=== PATIENT | female | born 1980 | race Caucasian/White ===

== ENCOUNTER 2021-03-08 11:20 | Emergency (ER) | payer OTHER ==
[2021-03-08] MEDS ORDERED: HYDROmorphone 0.5 MG/0.5 ML SYRINGE IVP STA ×2 (11:46→13:24)
[2021-03-08] MEDS ORDERED: SODIUM CHLORIDE 0.9% 500 ML 500 ML IV STA (11:46)
[2021-03-08] MEDS ORDERED: SODIUM CHLORIDE 0.9% 1,000 ML IV STA (11:46)
[2021-03-08] MEDS ORDERED: ONDANSETRON 4 MG/2 ML VIAL IVP STA (11:46)
[2021-03-08] MEDS ORDERED: KETOROLAC 15 MG/ML 1 ML VIAL IVP STA (11:46)
--- NOTE | 2021-03-08 12:04 | ED ---
General Adult HPI - General Source: patient, RN notes reviewed Mode of arrival: ambulatory Limitations: no limitations <Martin Rivera - Last Filed: 03/08/21 12:02> <Jax Ovalle - Last Filed: 03/08/21 15:05> - General Chief complaint: Urogenital Stated complaint: rt sided back pain Time Seen by Provider: 03/08/21 11:26 - History of Present Illness Initial comments: This a 40-year-old female presents emergency Department chief complaint of left flank pain. Patient states that she's been having some frequency with dribbling, right hematuria recently. Patient states pain just started severe. Slight nausea no vomiting no diarrhea no constipation. Patient said prior section and tubal ligation no other abdominal surgeries no history kidney stones. (Martin Rivera) - Related Data Previous Rx's Medication Instructions Recorded Cephalexin [Keflex] 500 mg PO BID 7 Days #14 cap 03/08/21 Allergies Allergy/AdvReac Type Severity Reaction Status Date / Time No Known Allergies Allergy Verified 03/08/21 12:16 Review of Systems ROS Other: All systems not noted in ROS Statement are negative. <Martin Rivera - Last Filed: 03/08/21 12:02> ROS Other: All systems not noted in ROS Statement are negative. <Jax Ovalle - Last Filed: 03/08/21 15:05> ROS Statement: Those systems with pertinent positive or pertinent negative responses have been documented in the HPI. Past Medical History Past Medical History: No Reported History History of Any Multi-Drug Resistant Organisms: None Reported Past Surgical History: Section Additional Past Surgical History / Comment(s): c section x 3 Past Psychological History: Anxiety, Depression Smoking Status: Current every day smoker Past Alcohol Use History: Occasional Past Drug Use History: Marijuana <Martin Rivera - Last Filed: 03/08/21 12:02> General Exam Limitations: no limitations General appearance: alert, in no apparent distress Head exam: Present: atraumatic, normocephalic, normal inspection Eye exam: Present: normal appearance, PERRL, EOMI. Absent: scleral icterus, conjunctival injection, periorbital swelling Respiratory exam: Present: normal lung sounds bilaterally. Absent: respiratory distress, wheezes, rales, rhonchi, stridor Cardiovascular Exam: Present: regular rate, normal rhythm, normal heart sounds. Absent: systolic murmur, diastolic murmur, rubs, gallop, clicks GI/Abdominal exam: Present: soft, tenderness (Moderate left), normal bowel sounds. Absent: distended, guarding, rebound, rigid Back exam: Present: CVA tenderness (L). Absent: CVA tenderness (R) Neurological exam: Present: alert Skin exam: Present: warm, dry, intact, normal color. Absent: rash <Martin Rivera - Last Filed: 03/08/21 12:02> Course Vital Signs 03/08/21 03/08/21 03/08/21 11:21 12:39 14:00 Temperature 97.7 F 98.3 F Pulse Rate 76 60 71 Respiratory 18 16 18 Rate Blood Pressure 134/82 131/95 116/79 O2 Sat by Pulse 99 98 97 Oximetry 03/08/21 15:00 Temperature Pulse Rate 62 Respiratory 18 Rate Blood Pressure O2 Sat by Pulse 98 Oximetry Medical Decision Making - Lab Data Result diagrams: 03/08/21 12:24 03/08/21 12:24 - Radiology Data Radiology results: report reviewed (Left renal pelvis stone 1.6 x 1.3 cm with moderate [place]) <Jax Ovalle - Last Filed: 03/08/21 15:05> - Medical Decision Making Patient reevaluated and resting comfortably in bed. Patient reevaluated and reexamined. I agree with PA findings. This includes diagnostic interpretation and treatment plan. No abdominal or CVA tenderness on exam. Case discussed with Dr. gaming who does request Keflex twice a day for one week and follow-up within the next week or 2. (Jax Ovalle) - Lab Data Lab Results 03/08/21 03/08/21 03/08/21 Range/Units 12:24 12:24 12:24 WBC 9.4 (3.8-10.6) k/uL RBC 4.00 (3.80-5.40) m/uL Hgb 13.4 (11.4-16.0) gm/dL Hct 38.8 (34.0-46.0) % MCV 96.9 (80.0-100.0) fL MCH 33.4 (25.0-35.0) pg MCHC 34.5 (31.0-37.0) g/dL RDW 13.2 (11.5-15.5) % Plt Count 254 (150-450) k/uL MPV 7.4 Neutrophils % 83 % Lymphocytes % 12 % Monocytes % 3 % Eosinophils % 1 % Basophils % 1 % Neutrophils # 7.7 (1.3-7.7) k/uL Lymphocytes # 1.1 (1.0-4.8) k/uL Monocytes # 0.3 (0-1.0) k/uL Eosinophils # 0.1 (0-0.7) k/uL Basophils # 0.1 (0-0.2) k/uL Sodium 140 (137-145) mmol/L Potassium 4.2 (3.5-5.1) mmol/L Chloride 111 H (98-107) mmol/L Carbon Dioxide 22 (22-30) mmol/L Anion Gap 7 mmol/L BUN 15 (7-17) mg/dL Creatinine 0.68 (0.52-1.04) mg/dL Est GFR (CKD-EPI)AfAm >90 (>60 ml/min/1.73 sqM) Est GFR (CKD-EPI)NonAf >90 (>60 ml/min/1.73 sqM) Glucose 109 H (74-99) mg/dL Plasma Lactic Acid Jose 0.8 (0.7-2.0) mmol/L Calcium 9.2 (8.4-10.2) mg/dL Total Bilirubin 0.5 (0.2-1.3) mg/dL AST 25 (14-36) U/L ALT 14 (4-34) U/L Alkaline Phosphatase 72 (38-126) U/L Total Protein 6.6 (6.3-8.2) g/dL Albumin 4.1 (3.5-5.0) g/dL Amylase 46 (30-110) U/L Lipase 63 (23-300) U/L Urine Color Urine Appearance (Clear) Urine pH (5.0-8.0) Ur Specific [place] (1.001-1.035) Urine Protein (Negative) Urine Glucose (UA) (Negative) Urine Ketones (Negative) Urine Blood (Negative) Urine Nitrite (Negative) Urine Bilirubin (Negative) Urine Urobilinogen (<2.0) mg/dL Ur Leukocyte Esterase (Negative) Urine RBC (0-5) /hpf Urine WBC (0-5) /hpf Ur Squamous Epith Cells (0-4) /hpf Urine Mucus (None) /hpf Urine HCG, Qual (Not Detectd) 03/08/21 03/08/21 Range/Units 13:58 13:58 WBC (3.8-10.6) k/uL RBC (3.80-5.40) m/uL Hgb (11.4-16.0) gm/dL Hct (34.0-46.0) % MCV (80.0-100.0) fL MCH (25.0-35.0) pg MCHC (31.0-37.0) g/dL RDW (11.5-15.5) % Plt Count (150-450) k/uL MPV Neutrophils % % Lymphocytes % % Monocytes % % Eosinophils % % Basophils % % Neutrophils # (1.3-7.7) k/uL Lymphocytes # (1.0-4.8) k/uL Monocytes # (0-1.0) k/uL Eosinophils # (0-0.7) k/uL Basophils # (0-0.2) k/uL Sodium (137-145) mmol/L Potassium (3.5-5.1) mmol/L Chloride (98-107) mmol/L Carbon Dioxide (22-30) mmol/L Anion Gap mmol/L BUN (7-17) mg/dL Creatinine (0.52-1.04) mg/dL Est GFR (CKD-EPI)AfAm (>60 ml/min/1.73 sqM) Est GFR (CKD-EPI)NonAf (>60 ml/min/1.73 sqM) Glucose (74-99) mg/dL Plasma Lactic Acid [place] (0.7-2.0) mmol/L Calcium (8.4-10.2) mg/dL Total Bilirubin (0.2-1.3) mg/dL AST (14-36) U/L ALT (4-34) U/L Alkaline Phosphatase (38-126) U/L Total Protein (6.3-8.2) g/dL Albumin (3.5-5.0) g/dL Amylase (30-110) U/L Lipase (23-300) U/L Urine Color Yellow Urine Appearance Clear (Clear) Urine pH 8.0 (5.0-8.0) Ur Specific [place] 1.018 (1.001-1.035) Urine Protein 1+ H (Negative) Urine Glucose (UA) Negative (Negative) Urine Ketones Negative (Negative) Urine Blood Large H (Negative) Urine Nitrite Negative (Negative) Urine Bilirubin Negative (Negative) Urine Urobilinogen <2.0 (<2.0) mg/dL Ur Leukocyte Esterase Moderate H (Negative) Urine RBC >182 H (0-5) /hpf Urine WBC 27 H (0-5) /hpf Ur Squamous Epith Cells 1 (0-4) /hpf Urine Mucus Rare H (None) /hpf Urine HCG, Qual Not Detected (Not Detectd) Disposition <Martin Rivera - Last Filed: 03/08/21 12:02> Is patient prescribed a controlled substance at d/c from ED?: No Time of Disposition: 15:03 <Jax Ovalle - Last Filed: 03/08/21 15:05> Clinical Impression: Kidney stone Disposition: HOME SELF-CARE Condition: Stable Instructions (If sedation given, give patient instructions): Kidney Stones (ED) Additional Instructions: Please do follow-up with Dr. Gaming within one week, number provided. Return for fever, increased pain, vomiting, worsening or change in symptoms or other concerns. Prescription for anabiotic has been sent to your pharmacy. [facility] pharmacy Prescriptions: Cephalexin [Keflex] 500 mg PO BID 7 Days #14 cap Referrals: Christopher Gaming MD [STAFF PHYSICIAN] - 1-2 days
--- NOTE | 2021-03-08 12:11 | CT ---
EXAMINATION TYPE: CT abdomen pelvis wo con DATE OF EXAM: 03/08/2021 COMPARISON: None HISTORY: Flank pain and dysuria. CT DLP: 458.5 mGycm Examination of the solid and hollow viscera is limited given the lack of contrast. FINDINGS: LUNG BASES: No evidence for nodule. No evidence for infiltrate. LIVER/GB: The gallbladder is unremarkable. No space-occupying hepatic lesion. PANCREAS: No pancreatic mass identified. No inflammatory process seen. SPLEEN: No evidence for splenomegaly. No intrasplenic lesions seen. ADRENALS: No adrenal nodules identified. No evidence for thickening. KIDNEYS: Calculus within the left renal pelvis measures 1.6 cm x 1.3 cm. There is moderate left-sided hydronephrosis. BOWEL: Appendix has a normal appearance. No evidence of bowel obstruction. No inflammatory process. Lymph nodes: No evidence for adenopathy greater than 1 cm. Abdominal aorta: Atheromatous changes seen. No evidence for aneurysm. Genital organs: No significant abnormality. Other: No significant abnormality. IMPRESSION: 1. Left sided hydronephrosis moderate in degree secondary to a calculus in the region of the left nirmal al pelvis as noted above. No additional calculi seen.
[2021-03-08 12:38] LABS: Basophils # (A) 0.1 k/uL (0-0.2); Basophils % (A) 1 %; Eosinophils # (A) 0.1 k/uL (0-0.7); Eosinophils % (A) 1 %; HCT 38.8 % (34.0-46.0); HGB 13.4 gm/dL (11.4-16.0); Lymphocytes # (A) 1.1 k/uL (1.0-4.8); Lymphocytes % (A) 12 %; MCH 33.4 pg (25.0-35.0); MCHC 34.5 g/dL (31.0-37.0); MCV 96.9 fL (80.0-100.0); Mean Platelet Volume 7.4; Monocytes # (A) 0.3 k/uL (0-1.0); Monocytes % (A) 3 %; Neutrophils # (A) 7.7 k/uL (1.3-7.7); Neutrophils % (A) 83 %; Platelet Count 254 k/uL (150-450); RDW 13.2 % (11.5-15.5); WBC 9.4 k/uL (3.8-10.6)
[2021-03-08 12:47] LABS: ALT 14 U/L (4-34); AST 25 U/L (14-36); African American GFR (CKD) >90 (>60 ml/min/1.73 sqM); Albumin 4.1 g/dL (3.5-5.0); Alkaline Phosphatase 72 U/L (38-126); Amylase 46 U/L (30-110); Anion Gap 7 mmol/L; Blood Urea Nitrogen 15 mg/dL (7-17); Calcium 9.2 mg/dL (8.4-10.2); Carbon Dioxide 22 mmol/L (22-30); Chloride 111 mmol/L (98-107); Glucose 109 mg/dL (74-99); Lipase 63 U/L (23-300); Non-African American GFR(CKD) >90 (>60 ml/min/1.73 sqM); Potassium 4.2 mmol/L (3.5-5.1); Sodium 140 mmol/L (137-145); Total Bilirubin 0.5 mg/dL (0.2-1.3); Total Protein 6.6 g/dL (6.3-8.2)
[2021-03-08] MEDS ORDERED: SODIUM CHLORIDE 0.9% 500 ML 500 ML IV ONE (13:20)
[2021-03-08 14:48] LABS: Appearance,Urine Clear (Clear); Bilirubin,Urine Negative (Negative); Blood,Urine Large (Negative); Color,Urine Yellow; Glucose,Urine (UA) Negative (Negative); Ketones,Urine Negative (Negative); Leukocyte Esterase,Urine Moderate (Negative); Mucus,Urine Rare /hpf; Nitrite,Urine Negative (Negative); Protein,Urine 1+ (Negative); RBC,Urine >182 /hpf (0-5); Specific Gravity,Urine 1.018 (1.001-1.035); Squamous Epithelial Cell,Urine 1 /hpf (0-4); Urobilinogen,Urine <2.0 mg/dL (<2.0); WBC,Urine 27 /hpf (0-5)
[2021-03-08] MEDS ORDERED: ACET/COD 300 MG/30 MG STARTER PACK 6 TAB BTL PO STA (15:02)
[2021-03-08 15:48] VITALS: BP 124/80; PULSE 66; RESP 20; TEMP 98.4
== END 2021-03-08 16:03 | disposition home or self-care (01) ==
LOC: EC 11:20
DX: N13.2 Hydronephrosis with renal and ureteral calculous obstruction (principal); F17.200 Nicotine dependence, unspecified, uncomplicated; Z98.891 History of uterine scar from previous surgery
CPT/HCPCS: 36415; 80053; 82150; 83605; 83690; 85025; 81001; 81025; 87086; 74176; 99284; 96374; 96376; 96375 ×2; 96361 ×2; J2405; J1885; J1170

== ENCOUNTER 2021-04-04 20:08 | Emergency (ER) | payer OTHER ==
[2021-04-04 20:25] VITALS: BP 144/90; PULSE 75; RESP 18; TEMP 98.6
[2021-04-04] MEDS ORDERED: MORPHINE SULFATE 4 MG/ML SYRINGE IM STA (21:02)
[2021-04-04] MEDS ORDERED: KETOROLAC 15 MG/ML 1 ML VIAL IM STA (21:02)
--- NOTE | 2021-04-04 21:10 | ED ---
General Adult HPI - General Chief complaint: Abdominal Pain Stated complaint: kidney stones Time Seen by Provider: 04/04/21 20:51 Source: patient, RN notes reviewed, old records reviewed Mode of arrival: ambulatory Limitations: no limitations - History of Present Illness Initial comments: 40-year-old female presenting for evaluation of left flank pain. Patient was diagnosed with a large kidney stone approximately one month ago. She had a stent placed by urology and is scheduled for lithotripsy. She's had some increased pain and does not have pain medication at home. She denies vomiting but has had some mild nausea. No fevers. No abdominal pain, pain is isolated to the left flank. - Related Data Previous Rx's Medication Instructions Recorded Cephalexin [Keflex] 500 mg PO BID 7 Days #14 cap 03/08/21 HYDROcodone/APAP 5-325MG [[place] 1 tab PO Q6HR PRN #12 tab 04/04/21 5-325] Ibuprofen [Motrin] 600 mg PO Q8HR PRN #24 tab 04/04/21 Allergies Allergy/AdvReac Type Severity Reaction Status Date / Time No Known Allergies Allergy Verified 03/08/21 12:16 Review of Systems ROS Statement: Those systems with pertinent positive or pertinent negative responses have been documented in the HPI. ROS Other: All systems not noted in ROS Statement are negative. Past Medical History Past Medical History: No Reported History History of Any Multi-Drug Resistant Organisms: None Reported Past Surgical History: Section Additional Past Surgical History / Comment(s): c section x 3 Past Psychological History: Anxiety, Depression Smoking Status: Current every day smoker Past Alcohol Use History: Occasional Past Drug Use History: Marijuana General Exam Limitations: no limitations General appearance: alert, in no apparent distress Head exam: Present: atraumatic, normocephalic Eye exam: Present: normal appearance, PERRL ENT exam: Present: normal exam Neck exam: Present: normal inspection. Absent: tenderness Respiratory exam: Present: normal lung sounds bilaterally. Absent: respiratory distress Cardiovascular Exam: Present: regular rate, normal rhythm GI/Abdominal exam: Present: soft. Absent: distended, tenderness, guarding, rebound Back exam: Present: CVA tenderness (L) Neurological exam: Present: alert, oriented X3, CN II-XII intact. Absent: motor sensory deficit Psychiatric exam: Present: normal affect, normal mood Skin exam: Present: warm, dry, intact. Absent: cyanosis, diaphoretic Course Vital Signs 04/04/21 20:23 Temperature 98.6 F Pulse Rate 75 Respiratory 18 Rate Blood Pressure 144/90 O2 Sat by Pulse 98 Oximetry Medical Decision Making - Medical Decision Making 40-year-old female with known left kidney stone which is seen on imaging obtained about one month ago. She did have a stent placed by urology. I discussed case with Dr. Gaming who is familiar with the patient come agreeable with pain management at this time and close outpatient follow-up. Patient's given strict return parameters. Disposition Clinical Impression: Kidney stone, Renal colic on left side Disposition: HOME SELF-CARE Condition: Good Instructions (If sedation given, give patient instructions): Kidney Stones (ED) Prescriptions: Ibuprofen [Motrin] 600 mg PO Q8HR PRN #24 tab PRN Reason: Pain HYDROcodone/APAP 5-325MG [[place] 5-325] 1 tab PO Q6HR PRN #12 tab PRN Reason: Pain Is patient prescribed a controlled substance at d/c from ED?: No Referrals: None,Stated [Primary Care Provider] - 1-2 days Christopher Gaming MD [STAFF PHYSICIAN] - 1-2 days Time of Disposition: 21:09
== END 2021-04-04 21:29 | disposition home or self-care (01) ==
LOC: EC 20:08
DX: N20.0 Calculus of kidney (principal); F32.9 Major depressive disorder, single episode, unspecified; F41.9 Anxiety disorder, unspecified; F17.200 Nicotine dependence, unspecified, uncomplicated; F12.90 Cannabis use, unspecified, uncomplicated
CPT/HCPCS: 99283; 96372 ×2; J2270; J1885

== ENCOUNTER → 2021-04-12 | Outpatient (CLI) | payer OTHER ==
[2021-04-12 11:40] LABS: Basophils # (A) 0.1 k/uL (0-0.2); Basophils % (A) 1 %; Eosinophils # (A) 0.1 k/uL (0-0.7); Eosinophils % (A) 3 %; HCT 37.8 % (34.0-46.0); Lymphocytes # (A) 1.6 k/uL (1.0-4.8); Lymphocytes % (A) 35 %; MCH 33.3 pg (25.0-35.0); MCHC 34.5 g/dL (31.0-37.0); MCV 96.6 fL (80.0-100.0); Mean Platelet Volume 7.6; Monocytes # (A) 0.3 k/uL (0-1.0); Monocytes % (A) 7 %; Neutrophils # (A) 2.4 k/uL (1.3-7.7); Neutrophils % (A) 53 %; Platelet Count 231 k/uL (150-450); RBC 3.91 m/uL (3.80-5.40); RDW 12.7 % (11.5-15.5); WBC 4.6 k/uL (3.8-10.6)
[2021-04-12 11:54] LABS: African American GFR (CKD) >90 (>60 ml/min/1.73 sqM); Anion Gap 8 mmol/L; Blood Urea Nitrogen 15 mg/dL (7-17); Calcium 9.7 mg/dL (8.4-10.2); Carbon Dioxide 25 mmol/L (22-30); Chloride 107 mmol/L (98-107); Glucose 99 mg/dL (74-99); Non-African American GFR(CKD) >90 (>60 ml/min/1.73 sqM); Potassium 3.9 mmol/L (3.5-5.1); Sodium 140 mmol/L (137-145)
[2021-04-12 11:58] LABS: Appearance,Urine Slightly Cloudy (Clear); Color,Urine Yellow; Specific Gravity,Urine >1.030 (1.001-1.035)
[2021-04-12 11:59] LABS: Bilirubin,Urine Negative (Negative); Blood,Urine Large (Negative); Glucose,Urine (UA) Negative (Negative); Ketones,Urine Negative (Negative); Leukocyte Esterase,Urine Large (Negative); Nitrite,Urine Negative (Negative); Protein,Urine 2+ (Negative); Urobilinogen,Urine <2.0 mg/dL (<2.0)
[2021-04-12 12:03] LABS: Bacteria,Urine Moderate /hpf; Mucus,Urine Moderate /hpf; RBC,Urine >182 /hpf (0-5); Squamous Epithelial Cell,Urine 2 /hpf (0-4); WBC,Urine >182 /hpf (0-5)
== END | disposition home or self-care (01) ==
LOC: LABPAT 10:30
PROVIDERS: ATTEND Urology
DX: Z01.812 Encounter for preprocedural laboratory examination (principal); N20.0 Calculus of kidney
CPT/HCPCS: 36415; 80048; 81001; 85025; 87086

== ENCOUNTER 2021-04-19 07:47 | Day surgery (SDC) | payer OTHER ==
[2021-04-15 17:39] VITALS: BMI 23.6
--- NOTE | 2021-04-15 20:09 | P.HPIHPCON ---
History of Present Illness H&P Date: 04/15/21 Chief Complaint: left ureteral stone This is a 40 yo female with history of 1.6 cm left sided ureteral stone, she is S/P left stent placement. She presents today for definitive stone management. Discussed the option of ESWL vs ureteroscopy with holmium laser. She agreed to proceed with left sided ureteroscopy with holmium laser, discussed the risk of bleeding, infection and injury to ureter. She understood all risks and agreed to proceed with left sided ureteroscopy with holmium laser, stone basketting and stent exchange Consent for Procedure: I have explained the operation/procedure to the patient, including the risks, benefits, side effects, alternative therapies (including not receiving the proposed treatment or service), the likelihood of the patient achieving his/her goals, and potential recuperation problems for the procedure/sedation/analgesia, as well as any blood products, if indicated. I also explained to the patient the risks, benefits and side effects of the alternatives, as well as the risks related to not receiving the proposed procedure, care, treatment, or services. - Constitutional Constitutional: Denies chills, Denies fever - Cardiovascular Cardiovascular: Denies chest pain, Denies shortness of breath - Respiratory Respiratory: Denies cough, Denies 7 - Gastrointestinal Gastrointestinal: Denies abdominal pain, Denies diarrhea, Denies nausea, Denies vomiting - Genitourinary (Female) Genitourinary: Reports flank pain, Reports hematuria Past Medical History Past Medical History: No Reported History Additional Past Medical History / Comment(s): kidney stones, migraines, History of Any Multi-Drug Resistant Organisms: None Reported Past Surgical History: Section, Tubal Ligation Additional Past Surgical History / Comment(s): c section x 3 Past Anesthesia/Blood Transfusion Reactions: No Reported Reaction Smoking Status: Current every day smoker - Past Family History Father Family Medical History: Cancer, Deep Vein Thrombosis (DVT) Medications and Allergies Home Medications Medication Instructions Recorded Confirmed Type Acetaminophen-Codeine 300-30mg 1 tab PO Q6H PRN 04/15/21 04/15/21 History [Tylenol w/codeine #3] Vitamin C/Biotin [Hair, Skin and 1 tab PO DAILY 04/15/21 04/15/21 History Nails] Allergies Allergy/AdvReac Type Severity Reaction Status Date / Time No Known Allergies Allergy Verified 04/15/21 17:31 Surgical - Exam - General no distress, moderate pain - Eyes PERRL, normal ocular movement - ENT normal nares, normal mucosa - Respiratory normal expansion, normal respiratory effort - Abdomen Abdomen: soft, non tender - Psychiatric oriented to time, oriented to person, oriented to place Assessment and Plan Assessment: 40 yo female with hx of 1.6 cm left sided renal pelvis stone - OR for left sided ureteroscopy, with holmium laser, stone basketting and stent placement
[~2021-04-19 07:47] MED LIST: DEXAMETHASONE SOD PHOSPHATE 4 MG/ML 1 ML VIAL IV ONE; HYDROmorphone 0.5 MG/0.5 ML SYRINGE IVP PRN; LACTATED RINGERS 1,000 ML IV SCH; ONDANSETRON 4 MG/2 ML VIAL IVP ONE
--- NOTE | 2021-04-19 08:17 | XR ---
EXAMINATION TYPE: XR KUB DATE OF EXAM: 04/19/2021 Comparison: CT 03/08/2021 Clinical History: 40-year-old female left-sided kidney stones Findings: Left ureteral stent is in place. There is a 1.8 x 0.9 cm oval calculus along the proximal portion of the stent, likely within the left renal pelvis. Bilateral tubal ligation clips. Phlebolith within the right side of the pelvis. Nonobstructive bowel gas pattern. Only mild stool within the left side of the abdomen. Impression: Oval 1.8 x 0.9 cm calculus in the left renal collecting system with a left ureteral stent in place.
[2021-04-19 08:26] VITALS: TEMP 97.7
[2021-04-19] MEDS ORDERED: LACTATED RINGERS 1,000 ML IV ONE ×2 (08:32→11:11)
[2021-04-19] MEDS ORDERED: HYDROmorphone (PF) 1 MG/ML ONE (09:15)
[2021-04-19] MEDS ORDERED: NEOSTIGMINE 1 MG/ML 10 ML VIAL ONE (09:15)
[2021-04-19] MEDS ORDERED: LIDOCAINE 1% INJ 10MG/ML (20 ML MDV) ONE (09:15)
[2021-04-19] MEDS ORDERED: fentaNYL (PF) 50 MCG/ML 2 ML AMP ONE (09:15)
[2021-04-19] MEDS ORDERED: MIDAZOLAM 2 MG/2 ML VIAL ONE (09:15)
[2021-04-19] MEDS ORDERED: ROCURONIUM 10 MG/ML (5 ML VIAL) IV ONE (09:15)
[2021-04-19] MEDS ORDERED: SUCCINYLCHOLINE CHLORIDE 100 MG/5 ML SYR IV ONE (09:15)
[2021-04-19] MEDS ORDERED: PROPOFOL 10 MG/ML 20 ML VIAL IV ONE (09:15)
[2021-04-19] MEDS ORDERED: GLYCOPYRROLATE 0.2 MG/ML 2 ML VIAL ONE (09:15)
--- NOTE | 2021-04-19 10:38 | P.OP ---
Date of Procedure: 04/19/21 Preoperative Diagnosis: Left renal calculi Postoperative Diagnosis: Same Procedure(s) Performed: Cystoscopy, left ureteroscopy, holmium laser lithotripsy, stone basketing and stent exchange Implants: 4.8-[place]izen [place] by 24 cm stent Anesthesia: DILIP Surgeon: Christopher Gaming Estimated Blood Loss (ml): 5 Pathology: other (left renal calculi) Condition: stable Disposition: PACU Indications for Procedure: This is a 40 yo female with history of 1.6 cm left sided renal pelvis stone, she is S/P left stent placement. She presents today for definitive stone management. Discussed the option of ESWL vs ureteroscopy with holmium laser. She agreed to proceed with left sided ureteroscopy with holmium laser, discussed the risk of bleeding, infection and injury to ureter. She understood all risks and agreed to proceed with left sided ureteroscopy with holmium laser, stone basketting and stent exchange Operative Findings: Large stone within the left renal pelvis Description of Procedure: She was brought to the operating room, general anesthesia was induced. She was prepped and draped in sterile fashion and placed in dorsal lithotomy position. Cystoscopy fitted with a 21-Citizen [place] sheath was inserted per urethra, cystoscopy was performed which showed no abnormality within the bladder. The stent was visualized protruding from the left ureter, stent was grasped and removed to the meatus. Next a sensor wire was advanced through the stent and the stent was removed with the wire in place. Next under fluoroscopy a 1214 Citizen [place] access sheath was passed into the proximal ureter. Next a flexible ureteroscope was inserted through the access sheath, renoscopy was performed which showed a large stone within the renal pelvis. Using the holmium laser the stone was fragmented into small fragments, sizable fragments were removed using the stone basket. Repeat renoscopy showed no sizable fragments or injury to the kidney.Pullback ureteroscopy was performed which showed no injury to the ureter or any ureteral fragments. As the ureteroscope was withdrawn and a sensor wire was advanced through. Next ureteral stent was passed over the wire, the proximal curl was visualized on fluoroscopy and distal curl was visualized using the cystoscope. The bladder was emptied at end of the case. Patient tolerated the procedure well was taken to PACU in stable condition
--- NOTE | 2021-04-19 10:54 | FL ---
EXAMINATION TYPE: FL guidance operating room DATE OF EXAM: 04/19/2021 FLUOROSCOPY Fluoroscopy time of 21 seconds was used during urologic intervention for left kidney stone. 3 image/ s document/s the procedure.
[2021-04-19] MEDS ORDERED: KETOROLAC 15 MG/ML 1 ML VIAL IVP ONE (11:07)
[2021-04-19 11:09] VITALS: RESP 16
[2021-04-19 11:44] VITALS: BP 112/73; PULSE 54
== END 2021-04-19 11:57 | disposition home or self-care (01) ==
LOC: OR 07:47
PROVIDERS: ATTEND Urology
DX: N20.0 Calculus of kidney (principal); G43.909 Migraine, unspecified, not intractable, without status migrainosus; Z98.891 History of uterine scar from previous surgery; Z98.51 Tubal ligation status; F17.200 Nicotine dependence, unspecified, uncomplicated; Z86.718 Personal history of other venous thrombosis and embolism
CPT/HCPCS: 81025; 82365; 74018; 52356; C2625; C1894; C1769; J2250; J1100; J2710; J0690; J2405; J2001; J3010; J1170 ×2; J1885; J0330; J2704

== ENCOUNTER 2021-04-24 05:48 | Emergency (ER) | payer OTHER ==
[2021-04-24 05:58] VITALS: TEMP 98
--- NOTE | 2021-04-24 06:21 | ED ---
Abdominal Pain HPI <Jax Ovalle - Last Filed: 04/24/21 09:02> - General Source: patient, family Mode of arrival: wheelchair Limitations: no limitations - History of Present Illness MD Complaint: abdominal pain -: days(s) (-) Location: LLQ, L flank Radiation: LLQ Severity scale (1-10): 8 Quality: cramping, stabbing Consistency: constant Improves With: rest, other (sitting on right side ) Worsens With: movement <Marbella Rowe - Last Filed: 04/24/21 10:24> - General Chief Complaint: Abdominal Pain Stated Complaint: Post Op Pain Time Seen by Provider: 04/24/21 06:07 - History of Present Illness Initial Comments: 40-year-old female presents with left-sided abdominal pain for the last 1-2 days. Patient states she was given lithotripsy earlier this week by Dr. pruitt. Patient also had her stent replaced at that time. Patient states she is having a lot of pain on the left lateral side reading down into the left lower quadrant. Patient states she called on-call urologist Dr. Jacobs and he told her it was just a stent she was feeling. Patient states it feels similar to when she had the kidney stone. Patient states she did not notice if she passed any stones this week. Patient does have decreased urine output states she has more Holter clean". No hematuria. No change of bowel movements. Patient had normal bowel movement this morning. Patient feels nauseated but no vomiting still eating well. Patient has a history of 3 sections. No recorded fevers. (Marbella Rowe) - Related Data Home Medications Medication Instructions Recorded Confirmed Acetaminophen-Codeine 300-30mg 1 tab PO Q6H PRN 04/15/21 04/15/21 [Tylenol w/codeine #3] Vitamin C/Biotin [Hair, Skin and 1 tab PO DAILY 04/15/21 04/15/21 Nails] Previous Rx's Medication Instructions Recorded Cephalexin [Keflex] 500 mg PO Q6HR 1 Days #4 cap 04/19/21 Ketorolac [Toradol] 10 mg PO Q6HR PRN #15 tab 04/19/21 Ciprofloxacin [Cipro Susp] 500 mg PO Q12HR #14 ml 04/24/21 HYDROcodone/APAP 5-325MG [[place] 1 tab PO Q6HR PRN 3 Days #12 tab 04/24/21 5-325] Allergies Allergy/AdvReac Type Severity Reaction Status Date / Time No Known Allergies Allergy Verified 04/24/21 05:55 Review of Systems ROS Other: All systems not noted in ROS Statement are negative. <Jax Ovalle - Last Filed: 04/24/21 09:02> ROS Other: All systems not noted in ROS Statement are negative. Constitutional: Reports: as per HPI. Denies: fever, chills Respiratory: Denies: dyspnea Cardiovascular: Denies: chest pain, palpitations Endocrine: Denies: fatigue Gastrointestinal: Reports: abdominal pain, nausea. Denies: vomiting, diarrhea, constipation Genitourinary: Reports: dysuria, frequency Musculoskeletal: Reports: back pain <Marbella Rowe - Last Filed: 04/24/21 10:24> ROS Statement: Those systems with pertinent positive or pertinent negative responses have been documented in the HPI. Past Medical History Past Medical History: No Reported History Additional Past Medical History / Comment(s): kidney stones History of Any Multi-Drug Resistant Organisms: None Reported Past Surgical History: Section Additional Past Surgical History / Comment(s): lithotripsy/ stent placement Past Psychological History: Anxiety, Depression Smoking Status: Current every day smoker Past Alcohol Use History: Occasional Past Drug Use History: Marijuana <Marbella Rowe - Last Filed: 04/24/21 10:24> General Exam Limitations: no limitations General appearance: alert, in distress (in pain) Respiratory exam: Present: normal lung sounds bilaterally. Absent: respiratory distress, wheezes, rales, rhonchi, stridor Cardiovascular Exam: Present: regular rate, normal rhythm, normal heart sounds. Absent: systolic murmur, diastolic murmur, rubs, gallop, clicks GI/Abdominal exam: Present: soft, tenderness (left side), normal bowel sounds. Absent: distended, guarding, rebound, rigid Back exam: Present: CVA tenderness (L) Neurological exam: Present: alert, oriented X3, CN II-XII intact Psychiatric exam: Present: normal affect, normal mood Skin exam: Present: warm, dry, intact, normal color. Absent: rash <Marbella Rowe - Last Filed: 04/24/21 10:24> Course <Jax Ovalle - Last Filed: 04/24/21 09:02> Vital Signs 04/24/21 04/24/21 05:55 09:44 Temperature 98 F Pulse Rate 70 64 Respiratory 18 16 Rate Blood Pressure 144/92 108/73 O2 Sat by Pulse 98 100 Oximetry - Reevaluation(s) Reevaluation #1: 04/24/21 09:02 Patient reevaluated by myself, Dr. Ovalle. Patient resting comfortably in bed and states discomfort is currently 6/10. Patient does have mild tenderness left flank region. Results and reports reviewed. Case was discussed with Dr. Jacobs including exam and lab and CT reports who states patient likely had stent pain and just needs pain control and follow-up with Dr. clay (Jax Ovalle) Medical Decision Making - Lab Data Result diagrams: 04/24/21 06:35 04/24/21 06:35 <Jax Ovalle - Last Filed: 04/24/21 09:02> - Lab Data Result diagrams: 04/24/21 06:35 04/24/21 06:35 <Marbella Rowe - Last Filed: 04/24/21 10:24> - Medical Decision Making reviewed ct abd which show hydronephrosis, pt still uncomfortable after 1 dose of Dilaudid. Patient was given a second dose along with Toradol no patient's pain is finally around 2 and resting comfortably. Patient feels drowsy. Dr. Ovalle discussed with urology and patient will go home outpatient and follow-up with them on Monday morning. Patient aware if symptoms are not improving or worsening patient to return to the emergency room otherwise patient will be treated with antibiotics and pain medication outpatient. (Marbella Rowe) - Lab Data Lab Results 04/24/21 04/24/21 04/24/21 Range/Units 06:35 06:35 06:39 WBC 7.9 (3.8-10.6) k/uL RBC 3.60 L (3.80-5.40) m/uL Hgb 12.3 (11.4-16.0) gm/dL Hct 34.6 (34.0-46.0) % MCV 96.0 (80.0-100.0) fL MCH 34.3 (25.0-35.0) pg MCHC 35.7 (31.0-37.0) g/dL RDW 12.9 (11.5-15.5) % Plt Count 227 (150-450) k/uL MPV 7.7 Neutrophils % 62 % Lymphocytes % 25 % Monocytes % 7 % Eosinophils % 4 % Basophils % 1 % Neutrophils # 4.9 (1.3-7.7) k/uL Lymphocytes # 2.0 (1.0-4.8) k/uL Monocytes # 0.5 (0-1.0) k/uL Eosinophils # 0.3 (0-0.7) k/uL Basophils # 0.1 (0-0.2) k/uL Sodium 138 (137-145) mmol/L Potassium 3.8 (3.5-5.1) mmol/L Chloride 109 H (98-107) mmol/L Carbon Dioxide 23 (22-30) mmol/L Anion Gap 6 mmol/L BUN 20 H (7-17) mg/dL Creatinine 0.57 (0.52-1.04) mg/dL Est GFR (CKD-EPI)AfAm >90 (>60 ml/min/1.73 sqM) Est GFR (CKD-EPI)NonAf >90 (>60 ml/min/1.73 sqM) Glucose 107 H (74-99) mg/dL Calcium 9.1 (8.4-10.2) mg/dL Total Bilirubin <0.1 L (0.2-1.3) mg/dL AST 28 (14-36) U/L ALT 24 (4-34) U/L Alkaline Phosphatase 73 (38-126) U/L Total Protein 5.7 L (6.3-8.2) g/dL Albumin 3.5 (3.5-5.0) g/dL Urine Color Yellow Urine Appearance Cloudy H (Clear) Urine pH 6.0 (5.0-8.0) Ur Specific [place] 1.020 (1.001-1.035) Urine Protein 2+ H (Negative) Urine Glucose (UA) Negative (Negative) Urine Ketones Negative (Negative) Urine Blood Large H (Negative) Urine Nitrite Negative (Negative) Urine Bilirubin Negative (Negative) Urine Urobilinogen <2.0 (<2.0) mg/dL Ur Leukocyte Esterase Large H (Negative) Urine RBC >182 H (0-5) /hpf Urine WBC 52 H (0-5) /hpf Ur Squamous Epith Cells 1 (0-4) /hpf Urine Bacteria Rare H (None) /hpf Urine Mucus Rare H (None) /hpf Urine HCG, Qual (Not Detectd) 04/24/21 Range/Units 06:40 WBC (3.8-10.6) k/uL RBC (3.80-5.40) m/uL Hgb (11.4-16.0) gm/dL Hct (34.0-46.0) % MCV (80.0-100.0) fL MCH (25.0-35.0) pg MCHC (31.0-37.0) g/dL RDW (11.5-15.5) % Plt Count (150-450) k/uL MPV Neutrophils % % Lymphocytes % % Monocytes % % Eosinophils % % Basophils % % Neutrophils # (1.3-7.7) k/uL Lymphocytes # (1.0-4.8) k/uL Monocytes # (0-1.0) k/uL Eosinophils # (0-0.7) k/uL Basophils # (0-0.2) k/uL Sodium (137-145) mmol/L Potassium (3.5-5.1) mmol/L Chloride (98-107) mmol/L Carbon Dioxide (22-30) mmol/L Anion Gap mmol/L BUN (7-17) mg/dL Creatinine (0.52-1.04) mg/dL Est GFR (CKD-EPI)AfAm (>60 ml/min/1.73 sqM) Est GFR (CKD-EPI)NonAf (>60 ml/min/1.73 sqM) Glucose (74-99) mg/dL Calcium (8.4-10.2) mg/dL Total Bilirubin (0.2-1.3) mg/dL AST (14-36) U/L ALT (4-34) U/L Alkaline Phosphatase (38-126) U/L Total Protein (6.3-8.2) g/dL Albumin (3.5-5.0) g/dL Urine Color Urine Appearance (Clear) Urine pH (5.0-8.0) Ur Specific [place] (1.001-1.035) Urine Protein (Negative) Urine Glucose (UA) (Negative) Urine Ketones (Negative) Urine Blood (Negative) Urine Nitrite (Negative) Urine Bilirubin (Negative) Urine Urobilinogen (<2.0) mg/dL Ur Leukocyte Esterase (Negative) Urine RBC (0-5) /hpf Urine WBC (0-5) /hpf Ur Squamous Epith Cells (0-4) /hpf Urine Bacteria (None) /hpf Urine Mucus (None) /hpf Urine HCG, Qual Not Detected (Not Detectd) Disposition <Jax Ovalle - Last Filed: 04/24/21 09:02> Is patient prescribed a controlled substance at d/c from ED?: Yes When asked, does pt state using other controlled substances?: No If prescribed controlled substance>3 days was MAPS reviewed?: Prescribed <3 Days If opioid is for acute pain is fill amount 7 days or less?: Yes If Rx opioid, was Start Talking consent form obtained?: Yes Time of Disposition: 10:24 <Marbella Rowe - Last Filed: 04/24/21 10:24> Clinical Impression: Kidney calculus, Hydronephrosis concurrent with and due to calculi of kidney and ureter, Renal colic on left side, UTI (urinary tract infection) Disposition: HOME SELF-CARE Condition: Good Instructions (If sedation given, give patient instructions): Abdominal Pain (ED), Kidney Stones (ED), Hydronephrosis (ED), Urinary Tract Infection in Women (ED) Prescriptions: Ciprofloxacin [Cipro Susp] 500 mg PO Q12HR #14 ml HYDROcodone/APAP 5-325MG [[place] 5-325] 1 tab PO Q6HR PRN 3 Days #12 tab PRN Reason: Pain Referrals: None,Stated [Primary Care Provider] - 1-2 days Demetrio Huber MD [STAFF PHYSICIAN] - 1-2 days
[2021-04-24] MEDS ORDERED: HYDROmorphone 0.5 MG/0.5 ML SYRINGE IVP STA ×2 (06:22→08:19)
[2021-04-24] MEDS ORDERED: ONDANSETRON 4 MG/2 ML VIAL IVP STA (06:23)
[2021-04-24] MEDS ORDERED: SODIUM CHLORIDE 0.9% 1,000 ML IV SCH (06:30)
[2021-04-24 07:04] LABS: Basophils # (A) 0.1 k/uL (0-0.2); Basophils % (A) 1 %; Eosinophils # (A) 0.3 k/uL (0-0.7); Eosinophils % (A) 4 %; HCT 34.6 % (34.0-46.0); HGB 12.3 gm/dL (11.4-16.0); Lymphocytes % (A) 25 %; MCH 34.3 pg (25.0-35.0); MCHC 35.7 g/dL (31.0-37.0); Mean Platelet Volume 7.7; Monocytes # (A) 0.5 k/uL (0-1.0); Monocytes % (A) 7 %; Neutrophils # (A) 4.9 k/uL (1.3-7.7); Neutrophils % (A) 62 %; Platelet Count 227 k/uL (150-450); RDW 12.9 % (11.5-15.5); WBC 7.9 k/uL (3.8-10.6)
[2021-04-24 07:13] LABS: ALT 24 U/L (4-34); AST 28 U/L (14-36); African American GFR (CKD) >90 (>60 ml/min/1.73 sqM); Albumin 3.5 g/dL (3.5-5.0); Alkaline Phosphatase 73 U/L (38-126); Anion Gap 6 mmol/L; Blood Urea Nitrogen 20 mg/dL (7-17); Calcium 9.1 mg/dL (8.4-10.2); Carbon Dioxide 23 mmol/L (22-30); Chloride 109 mmol/L (98-107); Glucose 107 mg/dL (74-99); Non-African American GFR(CKD) >90 (>60 ml/min/1.73 sqM); Potassium 3.8 mmol/L (3.5-5.1); Sodium 138 mmol/L (137-145); Total Bilirubin <0.1 mg/dL (0.2-1.3); Total Protein 5.7 g/dL (6.3-8.2)
[2021-04-24 07:49] LABS: Appearance,Urine Cloudy (Clear); Bacteria,Urine Rare /hpf; Bilirubin,Urine Negative (Negative); Blood,Urine Large (Negative); Color,Urine Yellow; Glucose,Urine (UA) Negative (Negative); Ketones,Urine Negative (Negative); Leukocyte Esterase,Urine Large (Negative); Mucus,Urine Rare /hpf; Nitrite,Urine Negative (Negative); Protein,Urine 2+ (Negative); RBC,Urine >182 /hpf (0-5); Squamous Epithelial Cell,Urine 1 /hpf (0-4); Urobilinogen,Urine <2.0 mg/dL (<2.0); WBC,Urine 52 /hpf (0-5)
--- NOTE | 2021-04-24 08:18 | CT ---
EXAMINATION TYPE: CT abdomen pelvis wo con DATE OF EXAM: 04/24/2021 COMPARISON: 03/08/2021 HISTORY: Left sided flank pain, s/p lithotripsy CT DLP: 433.9 mGycm Examination of the solid and hollow viscera is limited given the lack of contrast. FINDINGS: LUNG BASES: No evidence for nodule. No evidence for infiltrate. LIVER/GB: The gallbladder is unremarkable. No space-occupying hepatic lesion. PANCREAS: No pancreatic mass identified. No inflammatory process seen. SPLEEN: No evidence for splenomegaly. No intrasplenic lesions seen. ADRENALS: No adrenal nodules identified. No evidence for thickening. KIDNEYS: Interval lithotripsy changes seen. Progressive hydronephrosis which is moderate to severe at this time. Left ureteral stent is in place. Layering hyperdensity is noted within the pelvicalyceal system left kidney at its mid and lower pole regions. No obstructing ureteral calculus is seen at thi s time. Right kidney is unremarkable. BOWEL: Appendix has a normal appearance. No evidence of bowel obstruction. No inflammatory process. Lymph nodes: No evidence for adenopathy greater than 1 cm. Abdominal aorta: Atheromatous changes seen. No evidence for aneurysm. Genital organs: No significant abnormality. Tubal ligation changes. Other: No significant abnormality. IMPRESSION: 1. Progressive left-sided hydronephrosis despite left ureteral stent. 2. Interval changes of lithotripsy with layering hyperdensity presumed calcifications within the manish coretta of the mid and lower pole of the left kidney.
[2021-04-24] MEDS ORDERED: KETOROLAC 15 MG/ML 1 ML VIAL IVP STA (09:03)
[2021-04-24 09:45] VITALS: BP 108/73; PULSE 64; RESP 16
== END 2021-04-24 10:28 | disposition home or self-care (01) ==
LOC: EC 05:48
DX: N13.6 Pyonephrosis (principal); G89.18 Other acute postprocedural pain; F17.200 Nicotine dependence, unspecified, uncomplicated; Z87.442 Personal history of urinary calculi
CPT/HCPCS: 36415; 80053; 85025; 81001; 81025; 87086; 74176; 99284; 96374; 96375; 96376; 96361; J2405; J1885; J1170

== ENCOUNTER 2021-05-03 01:44 | Emergency (ER) | payer OTHER ==
[2021-05-03] MEDS ORDERED: SODIUM CHLORIDE 0.9% 1,000 ML IV STA (02:16)
[2021-05-03] MEDS ORDERED: ONDANSETRON 4 MG/2 ML VIAL IVP STA (02:16)
[2021-05-03] MEDS ORDERED: HYDROmorphone 1 MG/ML 1 ML SYRINGE IVP STA ×2 (02:16→03:28)
[2021-05-03] MEDS ORDERED: KETOROLAC 15 MG/ML 1 ML VIAL IVP STA (02:16)
[2021-05-03 02:34] LABS: Basophils # (A) 0.1 k/uL (0-0.2); Basophils % (A) 1 %; Eosinophils # (A) 0.2 k/uL (0-0.7); Eosinophils % (A) 3 %; HCT 35.3 % (34.0-46.0); HGB 12.5 gm/dL (11.4-16.0); Lymphocytes # (A) 1.7 k/uL (1.0-4.8); Lymphocytes % (A) 26 %; MCHC 35.5 g/dL (31.0-37.0); MCV 95.8 fL (80.0-100.0); Mean Platelet Volume 7.3; Monocytes # (A) 0.3 k/uL (0-1.0); Monocytes % (A) 5 %; Neutrophils # (A) 4.1 k/uL (1.3-7.7); Neutrophils % (A) 64 %; Platelet Count 319 k/uL (150-450); RBC 3.68 m/uL (3.80-5.40); WBC 6.5 k/uL (3.8-10.6)
[2021-05-03 02:44] LABS: Appearance,Urine Cloudy (Clear); Bacteria,Urine Moderate /hpf; Bilirubin,Urine Negative (Negative); Blood,Urine Large (Negative); Color,Urine Yellow; Glucose,Urine (UA) Negative (Negative); Ketones,Urine Negative (Negative); Leukocyte Esterase,Urine Large (Negative); Mucus,Urine Occasional /hpf; Nitrite,Urine Negative (Negative); Protein,Urine 2+ (Negative); RBC,Urine >182 /hpf (0-5); Specific Gravity,Urine 1.015 (1.001-1.035); Squamous Epithelial Cell,Urine 1 /hpf (0-4); Urobilinogen,Urine <2.0 mg/dL (<2.0); WBC,Urine 117 /hpf (0-5)
[2021-05-03 02:46] LABS: ALT 14 U/L (4-34); AST 23 U/L (14-36); African American GFR (CKD) >90 (>60 ml/min/1.73 sqM); Albumin 4.1 g/dL (3.5-5.0); Alkaline Phosphatase 78 U/L (38-126); Anion Gap 8 mmol/L; Blood Urea Nitrogen 14 mg/dL (7-17); Calcium 9.3 mg/dL (8.4-10.2); Carbon Dioxide 23 mmol/L (22-30); Chloride 109 mmol/L (98-107); Glucose 108 mg/dL (74-99); Lipase 65 U/L (23-300); Non-African American GFR(CKD) >90 (>60 ml/min/1.73 sqM); Potassium 3.7 mmol/L (3.5-5.1); Sodium 140 mmol/L (137-145); Total Bilirubin 0.2 mg/dL (0.2-1.3); Total Protein 6.4 g/dL (6.3-8.2)
--- NOTE | 2021-05-03 02:58 | ED ---
Abdominal Pain HPI - General Chief Complaint: Abdominal Pain Stated Complaint: Flank Pain Time Seen by Provider: 05/03/21 01:56 Source: patient Mode of arrival: wheelchair Limitations: no limitations - History of Present Illness Initial Comments: 40 year-old female patient presents to the emergency department for evaluation of left flank pain. Patient was diagnosed with kidney stone on 04/04/21, underwent subsequent lithotripsy and stent placement with Dr. Gaming on 04/19/21. Patient states that she has been having left flank pain since the procedure but symptoms seemed to worsen tonight. Has been having blood in her urine. States she had an episode of vomiting tonight and could not take the pain any longer. She does have an appointment with Dr. Gaming on Monday. Denies any fever or chills. Has been taking the antibiotic as prescribed. Patient denies any recent rash, cough, shortness of breath, chest pain, diarrhea, constipation, back pain, nu mbness, tingling, dizziness, weakness, headache, visual changes, or any other complaints. - Related Data Home Medications Medication Instructions Recorded Confirmed Acetaminophen-Codeine 300-30mg 1 tab PO Q6H PRN 04/15/21 04/15/21 [Tylenol w/codeine #3] Vitamin C/Biotin [Hair, Skin and 1 tab PO DAILY 04/15/21 04/15/21 Nails] Previous Rx's Medication Instructions Recorded Cephalexin [Keflex] 500 mg PO Q6HR 1 Days #4 cap 04/19/21 Ketorolac [Toradol] 10 mg PO Q6HR PRN #15 tab 04/19/21 Ciprofloxacin HCl [Cipro] 500 mg PO Q12HR 7 Days #14 tab 04/24/21 Ciprofloxacin [Cipro Susp] 500 mg PO Q12HR #14 ml 04/24/21 HYDROcodone/APAP 5-325MG [[place] 1 tab PO Q6HR PRN 3 Days #12 tab 04/24/21 5-325] Hydrocodone/Acetaminophen [[place] 1 tab PO Q6HR PRN 3 Days #12 tab 05/03/21 7.5-325] Ondansetron [Zofran ODT] 4 mg PO Q8HR PRN #10 tab 05/03/21 Allergies Allergy/AdvReac Type Severity Reaction Status Date / Time No Known Allergies Allergy Verified 05/03/21 01:49 Review of Systems ROS Statement: Those systems with pertinent positive or pertinent negative responses have been documented in the HPI. ROS Other: All systems not noted in ROS Statement are negative. Past Medical History Past Medical History: No Reported History Additional Past Medical History / Comment(s): kidney stones History of Any Multi-Drug Resistant Organisms: None Reported Past Surgical History: Section Additional Past Surgical History / Comment(s): lithotripsy/ stent placement Past Psychological History: Anxiety, Depression Smoking Status: Current every day smoker Past Alcohol Use History: Occasional Past Drug Use History: Marijuana General Exam Limitations: no limitations General appearance: alert, in no apparent distress, other (Physical well- developed, well-nourished adult female patient in no acute distress. Vital signs upon presentation are temperature 98.3F, pulse 66, respirations 20, blood pressure 126/78, pulse ox 97% on room air.) ENT exam: Present: normal exam, normal oropharynx, mucous membranes moist Respiratory exam: Present: normal lung sounds bilaterally. Absent: respiratory distress, wheezes, rales, rhonchi, stridor Cardiovascular Exam: Present: regular rate, normal rhythm, normal heart sounds. Absent: systolic murmur, diastolic murmur, rubs, gallop, clicks GI/Abdominal exam: Present: soft, normal bowel sounds. Absent: distended, tenderness, guarding, rebound, rigid Back exam: Present: normal inspection, CVA tenderness (L). Absent: CVA tenderne ss (R) Neurological exam: Present: alert, oriented X3, CN II-XII intact Psychiatric exam: Present: normal affect, normal mood Skin exam: Present: warm, dry, intact, normal color. Absent: rash Course Vital Signs 05/03/21 05/03/21 01:45 03:43 Temperature 98.3 F Pulse Rate 66 65 Respiratory 20 16 Rate Blood Pressure 126/78 120/82 O2 Sat by Pulse 97 99 Oximetry Medical Decision Making - Medical Decision Making 40 year-old female patient presents to the emergency department for evaluation of left flank pain. Has a stent in after having lithotripsy on 04/19/21. Physical exam reveals tenderness over the left flank. Labs reviewed and showed normal white blood cell count, normal renal function. Urinalysis showed large amount of red cells and white cells. Some bacteria. She is on antibiotics. X-ray was unremarkable. She'll be discharged to follow-up with her urologist on Monday she has planned. She is given prescription for pain and nausea medication. Return parameters were discussed in detail. He verbalizes understanding and agrees with this plan. Case discussed with my attending Dr. Burnett. - Lab Data Result diagrams: 05/03/21 02:24 05/03/21 02:24 Lab Results 05/03/21 05/03/21 05/03/21 Range/Units 02:24 02:24 02:24 WBC 6.5 (3.8-10.6) k/uL RBC 3.68 L (3.80-5.40) m/uL Hgb 12.5 (11.4-16.0) gm/dL Hct 35.3 (34.0-46.0) % MCV 95.8 (80.0-100.0) fL MCH 34.0 (25.0-35.0) pg MCHC 35.5 (31.0-37.0) g/dL RDW 13.0 (11.5-15.5) % Plt Count 319 (150-450) k/uL MPV 7.3 Neutrophils % 64 % Lymphocytes % 26 % Monocytes % 5 % Eosinophils % 3 % Basophils % 1 % Neutrophils # 4.1 (1.3-7.7) k/uL Lymphocytes # 1.7 (1.0-4.8) k/uL Monocytes # 0.3 (0-1.0) k/uL Eosinophils # 0.2 (0-0.7) k/uL Basophils # 0.1 (0-0.2) k/uL Sodium 140 (137-145) mmol/L Potassium 3.7 (3.5-5.1) mmol/L Chloride 109 H (98-107) mmol/L Carbon Dioxide 23 (22-30) mmol/L Anion Gap 8 mmol/L BUN 14 (7-17) mg/dL Creatinine 0.75 (0.52-1.04) mg/dL Est GFR (CKD-EPI)AfAm >90 (>60 ml/min/1.73 sqM) Est GFR (CKD-EPI)NonAf >90 (>60 ml/min/1.73 sqM) Glucose 108 H (74-99) mg/dL Calcium 9.3 (8.4-10.2) mg/dL Total Bilirubin 0.2 (0.2-1.3) mg/dL AST 23 (14-36) U/L ALT 14 (4-34) U/L Alkaline Phosphatase 78 (38-126) U/L Total Protein 6.4 (6.3-8.2) g/dL Albumin 4.1 (3.5-5.0) g/dL Lipase 65 (23-300) U/L Urine Color Yellow Urine Appearance Cloudy H (Clear) Urine pH 6.0 (5.0-8.0) Ur Specific [place] 1.015 (1.001-1.035) Urine Protein 2+ H (Negative) Urine Glucose (UA) Negative (Negative) Urine Ketones Negative (Negative) Urine Blood Large H (Negative) Urine Nitrite Negative (Negative) Urine Bilirubin Negative (Negative) Urine Urobilinogen <2.0 (<2.0) mg/dL Ur Leukocyte Esterase Large H (Negative) Urine RBC >182 H (0-5) /hpf Urine WBC 117 H (0-5) /hpf Ur Squamous Epith Cells 1 (0-4) /hpf Urine Bacteria Moderate H (None) /hpf Urine Mucus Occasional H (None) /hpf - Radiology Data Radiology results: report reviewed, image reviewed 2 views of the abdomen are obtained. Report was reviewed in its entirety. Impression by Dr. Banegas shows nonacute abdomen. There is reduction of clearing of the large stone over the left kidney compared to old exam. Disposition Clinical Impression: Left flank pain Disposition: HOME SELF-CARE Condition: Good Instructions (If sedation given, give patient instructions): Flank Pain (ED) Additional Instructions: Take medications as directed. Increase fluids. Follow-up with your urologist for further evaluation on Monday as you have planned. Return to the emergency department for any new, worsening, or concerning symptoms. Prescriptions: Hydrocodone/Acetaminophen [[place] 7.5-325] 1 tab PO Q6HR PRN 3 Days #12 tab PRN Reason: Pain Ondansetron [Zofran ODT] 4 mg PO Q8HR PRN #10 tab PRN Reason: Nausea Is patient prescribed a controlled substance at d/c from ED?: Yes When asked, does pt state using other controlled substances?: No If prescribed controlled substance>3 days was MAPS reviewed?: Prescribed <3 Days If opioid is for acute pain is fill amount 7 days or less?: Yes If Rx opioid, was Start Talking consent form obtained?: Yes Referrals: None,Stated [Primary Care Provider] - 1-2 days Time of Disposition: 03:45
--- NOTE | 2021-05-03 03:01 | XR ---
EXAMINATION TYPE: XR KUB DATE OF EXAM: 05/03/2021 COMPARISON: 04/19/2021 HISTORY: Pain TECHNIQUE: 2 views FINDINGS: 2 views upright show left side ureteral stent in good position. There are clips from tubal ligation. There is no sign of intestinal obstruction or pneumoperitoneum. Fecal pattern is normal. I see no evidence of a mass. Lung bases are clear. IMPRESSION: Nonacute abdomen. There is reduction or clearing of the large stone over the left kidney compared to old exam.
[2021-05-03] MEDS ORDERED: ONDANSETRON 4 MG ODT STARTER PACK 2 TAB BTL PO STA (04:56)
[2021-05-03] MEDS ORDERED: ACET/COD 300 MG/30 MG STARTER PACK 6 TAB BTL PO STA (04:57)
[2021-05-03 05:05] VITALS: BP 112/78; PULSE 67; RESP 18; TEMP 97.8
== END 2021-05-03 05:02 | disposition home or self-care (01) ==
LOC: EC 01:44
DX: R10.9 Unspecified abdominal pain (principal); R31.9 Hematuria, unspecified; F17.200 Nicotine dependence, unspecified, uncomplicated; Z87.442 Personal history of urinary calculi
CPT/HCPCS: 36415; 80053; 83690; 85025; 81001; 87086; 74018; 99284; 96374; 96375; 96376; 96361; J2405; J1170; J1885; S0119

== ENCOUNTER 2021-08-20 03:23 | Emergency (ER) | payer OTHER ==
[2021-08-20 03:29] VITALS: TEMP 98
[2021-08-20] MEDS ORDERED: ACETAMINOPHEN TAB 325 MG TAB PO STA (03:43)
[2021-08-20] MEDS ORDERED: dexAMETHasone 2 MG TAB PO STA (03:43)
[2021-08-20] MEDS ORDERED: Acetaminophen-Codeine 300-30mg TAB PO STA (03:43)
[2021-08-20] MEDS ORDERED: IPRATROPIUM-ALBUTEROL 3 ML NEB INHALATION STA (03:43)
--- NOTE | 2021-08-20 03:44 | ED ---
URI HPI - General Chief Complaint: Upper Respiratory Infection Stated Complaint: MAGNUS, headache Time Seen by Provider: 08/20/21 03:32 Source: patient, RN notes reviewed, old records reviewed Mode of arrival: ambulatory Limitations: no limitations - History of Present Illness Initial Comments: This is a 40-year-old female DF for evaluation regarding a cough and congestion occasional chest pain concern for coronavirus. No fevers no travel show sick contacts. No other complaints MD Complaint: fever, cough, sore throat -: hour(s) Severity: moderate Severity scale (1-10): 4 Quality: sharp Consistency: constant Improves With: NSAID Worsens With: nothing Context: new medications Associated Symptoms: myalgias, diaphoresis, sore throat, nausea, confusion Treatments Prior to Arrival: none - Related Data Home Medications Medication Instructions Recorded Confirmed Acetaminophen-Codeine 300-30mg 1 tab PO Q6H PRN 04/15/21 04/15/21 [Tylenol w/codeine #3] Vitamin C/Biotin [Hair, Skin and 1 tab PO DAILY 04/15/21 04/15/21 Nails] Previous Rx's Medication Instructions Recorded Cephalexin [Keflex] 500 mg PO Q6HR 1 Days #4 cap 04/19/21 Ketorolac [Toradol] 10 mg PO Q6HR PRN #15 tab 04/19/21 Ciprofloxacin HCl [Cipro] 500 mg PO Q12HR 7 Days #14 tab 04/24/21 Ciprofloxacin [Cipro Susp] 500 mg PO Q12HR #14 ml 04/24/21 HYDROcodone/APAP 5-325MG [[place] 1 tab PO Q6HR PRN 3 Days #12 tab 04/24/21 5-325] Hydrocodone/Acetaminophen [[place] 1 tab PO Q6HR PRN 3 Days #12 tab 05/03/21 7.5-325] Ondansetron [Zofran ODT] 4 mg PO Q8HR PRN #10 tab 05/03/21 Azithromycin [Zithromax Z-pack (6 0 mg PO DIRECTED #1 packet 08/20/21 tabs)] Allergies Allergy/AdvReac Type Severity Reaction Status Date / Time No Known Allergies Allergy Verified 08/20/21 03:29 Review of Systems ROS Statement: Those systems with pertinent positive or pertinent negative responses have been documented in the HPI. ROS Other: All systems not noted in ROS Statement are negative. Past Medical History Past Medical History: No Reported History Additional Past Medical History / Comment(s): kidney stones History of Any Multi-Drug Resistant Organisms: None Reported Past Surgical History: Section Additional Past Surgical History / Comment(s): lithotripsy/ stent placement Past Psychological History: Anxiety, Depression Smoking Status: Current every day smoker Past Alcohol Use History: Occasional Past Drug Use History: Marijuana General Exam Limitations: no limitations General appearance: alert, in no apparent distress Head exam: Present: atraumatic, normocephalic, normal inspection Eye exam: Present: normal appearance, PERRL, EOMI. Absent: scleral icterus, conjunctival injection, periorbital swelling ENT exam: Present: normal exam, mucous membranes moist Neck exam: Present: normal inspection. Absent: tenderness, meningismus, lymphadenopathy Respiratory exam: Present: normal lung sounds bilaterally. Absent: respiratory distress, wheezes, rales, rhonchi, stridor Cardiovascular Exam: Present: regular rate, normal rhythm, normal heart sounds. Absent: systolic murmur, diastolic murmur, rubs, gallop, clicks GI/Abdominal exam: Present: soft, normal bowel sounds. Absent: distended, tenderness, guarding, rebound, rigid Extremities exam: Present: normal inspection, full ROM, normal capillary refill. Absent: tenderness, pedal edema, joint swelling, calf tenderness Back exam: Present: normal inspection Neurological exam: Present: alert, oriented X3, CN II-XII intact Psychiatric exam: Present: normal affect, normal mood Skin exam: Present: warm, dry, intact, normal color. Absent: rash Course Vital Signs 08/20/21 08/20/21 03:25 05:41 Temperature 98 F Pulse Rate 76 62 Respiratory 26 H 18 Rate Blood Pressure 138/98 131/96 O2 Sat by Pulse 99 99 Oximetry - Reevaluation(s) Reevaluation #1: Medical record is reviewed Patient symptoms are improved here in the ER and remained improved Patient informed results and questions answered Medical Decision Making - Medical Decision Making 40 female to the emergency department for cough and congestion, negative for coronavirus pressure infection patient can be discharged home - Lab Data Lab Results 08/20/21 Range/Units 03:56 Coronavirus (PCR) Not Detected (Not Detectd) - Radiology Data Radiology results: report reviewed (Chest x-rays negative for acute disease), image reviewed Disposition Clinical Impression: Acute upper respiratory infection, Bronchitis Disposition: HOME SELF-CARE Condition: Good Instructions (If sedation given, give patient instructions): Upper Respiratory Infection (ED) Prescriptions: Azithromycin [Zithromax Z-pack (6 tabs)] 0 mg PO DIRECTED #1 packet Is patient prescribed a controlled substance at d/c from ED?: No Referrals: None,Stated [Primary Care Provider] - 1-2 days
--- NOTE | 2021-08-20 04:43 | XR ---
EXAMINATION TYPE: XR chest 1V DATE OF EXAM: 08/20/2021 COMPARISON: NONE HISTORY: Short of breath TECHNIQUE: FINDINGS: Heart and mediastinum are normal. Lungs are clear. Diaphragm is normal. Bony thorax appears normal. IMPRESSION: Normal chest.
[2021-08-20] MEDS ORDERED: AZITHROMYCIN 500 MG TAB PO STA (05:23)
[2021-08-20 05:43] VITALS: BP 131/96; PULSE 62; RESP 18
== END 2021-08-20 05:51 | disposition home or self-care (01) ==
LOC: EC 03:23
DX: J06.9 Acute upper respiratory infection, unspecified (principal); J40 Bronchitis, not specified as acute or chronic; F17.200 Nicotine dependence, unspecified, uncomplicated; Z20.822 Contact with and (suspected) exposure to COVID-19
CPT/HCPCS: 87635; 71045; 99285; J8540

== ENCOUNTER 2022-06-08 08:59 | Emergency (ER) | payer OTHER ==
[2022-06-08 09:04] VITALS: BP 156/87; PULSE 65; RESP 20; TEMP 98.2
[2022-06-08] MEDS ORDERED: KETOROLAC 15 MG/ML 1 ML VIAL IM STA (10:25)
--- NOTE | 2022-06-08 10:28 | ED ---
General Adult HPI - General Chief complaint: Neck Pain/Injury Stated complaint: Back and neck pain Time Seen by Provider: 06/08/22 09:48 Source: patient Mode of arrival: ambulatory Limitations: no limitations - History of Present Illness Initial comments: Patient is a pleasant 41-year-old female presenting to the emergency department with concerns with neck and back pain. Onset of symptoms was yesterday. Discomfort increases greatly with movement, especially flexion and extension of the neck. No chest pain or dyspnea. No leg pain. No loss of sensation. Patient does have some tingling of her arms however no weakness or loss of sensation but are either. No history of chronic similar problems. - Related Data Home Medications Medication Instructions Recorded Confirmed Acetaminophen-Codeine 300-30mg 1 tab PO Q6H PRN 04/15/21 04/15/21 [Tylenol w/codeine #3] Vitamin C/Biotin [Hair, Skin and 1 tab PO DAILY 04/15/21 04/15/21 Nails] Previous Rx's Medication Instructions Recorded Cephalexin [Keflex] 500 mg PO Q6HR 1 Days #4 cap 04/19/21 Ketorolac [Toradol] 10 mg PO Q6HR PRN #15 tab 04/19/21 Ciprofloxacin HCl [Cipro] 500 mg PO Q12HR 7 Days #14 tab 04/24/21 Ciprofloxacin [Cipro Susp] 500 mg PO Q12HR #14 ml 04/24/21 HYDROcodone/APAP 5-325MG [[place] 1 tab PO Q6HR PRN 3 Days #12 tab 04/24/21 5-325] Hydrocodone/Acetaminophen [[place] 1 tab PO Q6HR PRN 3 Days #12 tab 05/03/21 7.5-325] Ondansetron [Zofran ODT] 4 mg PO Q8HR PRN #10 tab 05/03/21 Azithromycin [Zithromax Z-pack (6 0 mg PO DIRECTED #1 packet 08/20/21 tabs)] Cyclobenzaprine [Flexeril] 10 mg PO TID PRN #12 tablet 06/08/22 Ibuprofen [Motrin] 600 mg PO Q6HR PRN #20 tab 06/08/22 Allergies Allergy/AdvReac Type Severity Reaction Status Date / Time No Known Allergies Allergy Verified 06/08/22 09:04 Review of Systems ROS Statement: Those systems with pertinent positive or pertinent negative responses have been documented in the HPI. ROS Other: All systems not noted in ROS Statement are negative. Constitutional: Denies: fever Eyes: Denies: eye pain ENT: Denies: ear pain Respiratory: Denies: cough, dyspnea Cardiovascular: Denies: chest pain Endocrine: Denies: fatigue Gastrointestinal: Denies: abdominal pain Genitourinary: Denies: dysuria Musculoskeletal: Reports: as per HPI, back pain Skin: Denies: rash Neurological: Denies: headache, weakness Past Medical History Past Medical History: No Reported History Additional Past Medical History / Comment(s): kidney stones History of Any Multi-Drug Resistant Organisms: None Reported Past Surgical History: Section Additional Past Surgical History / Comment(s): lithotripsy/ stent placement Past Psychological History: Anxiety, Depression Smoking Status: Current every day smoker Past Alcohol Use History: Occasional Past Drug Use History: Marijuana General Exam Limitations: no limitations General appearance: alert, in no apparent distress Head exam: Present: normocephalic Eye exam: Present: normal appearance, PERRL Neck exam: Present: normal inspection, full ROM. Absent: tenderness Respiratory exam: Present: normal lung sounds bilaterally. Absent: chest wall tenderness Cardiovascular Exam: Present: regular rate, normal rhythm Expanded Peripheral pulses: 2+: Radial (R), Radial (L), Dorsalis Pedis (R), Dorsalis Pedis (L) GI/Abdominal exam: Present: soft. Absent: tenderness Extremities exam: Present: normal inspection Back exam: Present: paraspinal tenderness (Mild mid to upper thoracic bilateral) Neurological exam: Present: alert. Absent: motor sensory deficit Psychiatric exam: Present: normal affect, normal mood Skin exam: Present: normal color Course Vital Signs 06/08/22 09:02 Temperature 98.2 F Pulse Rate 65 Respiratory 20 Rate Blood Pressure 156/87 O2 Sat by Pulse 97 Oximetry Medical Decision Making - Medical Decision Making Patient reevaluated and updated. - Radiology Data Radiology results: image reviewed (Thoracic x-rays reveal no acute process) Disposition Clinical Impression: Strain of thoracic region Disposition: HOME SELF-CARE Condition: Stable Instructions (If sedation given, give patient instructions): Thoracic Back Strain (ED) Additional Instructions: Prescription for anti-inflammatory and muscle relaxer sent to pharmacy. Please do follow-up to primary care physician in the next day or 2 for recheck. Return for increased pain, weakness, worsening or changing symptoms or other concerns. Prescriptions: Cyclobenzaprine [Flexeril] 10 mg PO TID PRN #12 tablet PRN Reason: Pain Ibuprofen [Motrin] 600 mg PO Q6HR PRN #20 tab PRN Reason: Pain Is patient prescribed a controlled substance at d/c from ED?: No Referrals: Sb Coe MD [STAFF PHYSICIAN] - 1-2 days Time of Disposition: 11:42
--- NOTE | 2022-06-08 11:08 | XR ---
EXAMINATION TYPE: XR thoracic spine complete DATE OF EXAM: 06/08/2022 10:40 AM INDICATION: Patient age:Female; 41 years old; Reason for study: pain; COMPARISON: Chest radiograph 08/20/2021 TECHNIQUE: 3 views of the thoracic spine in Frontal, lateral, and swimmer's projections. FINDINGS: No evidence of acute fracture. There is no evidence of disk space narrowing or loss of vertebral bod y height. There is normal alignment of the thoracic vertebral bodies. The pedicles are intact. Visual ized lungs are clear. IMPRESSION: No acute osseous pathology.
== END 2022-06-08 12:05 | disposition home or self-care (01) ==
LOC: EC 08:59
DX: S29.012A Strain of muscle and tendon of back wall of thorax, initial encounter (principal); F17.200 Nicotine dependence, unspecified, uncomplicated; X58.XXXA Exposure to other specified factors, initial encounter
CPT/HCPCS: 72072; 99283; 96372; J1885

== ENCOUNTER 2022-07-18 23:30 | Emergency (ER) | payer OTHER ==
[2022-07-18 23:35] VITALS: BP 156/97; PULSE 99; RESP 18; TEMP 98.4
[2022-07-19] MEDS ORDERED: ACETAMINOPHEN TAB 500 MG TAB PO STA (02:42)
[2022-07-19] MEDS ORDERED: DIPH,PERTUS(ACELL)TETVAC-LF 0.5 ML VIAL IM ONE (02:42)
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
== END 2022-07-19 05:47 | disposition home or self-care (01) ==
LOC: EC 23:30
DX: S00.01XA Abrasion of scalp, initial encounter (principal); S13.4XXA Sprain of ligaments of cervical spine, initial encounter; S63.92XA Sprain of unspecified part of left wrist and hand, initial encounter; S09.90XA Unspecified injury of head, initial encounter; Z23 Encounter for immunization; F41.9 Anxiety disorder, unspecified; F32.A Depression, unspecified; F12.90 Cannabis use, unspecified, uncomplicated; Z79.899 Other long term (current) drug therapy; V49.40XA Driver injured in collision with unspecified motor vehicles in traffic accident, initial encounter; W26.8XXA Contact with other sharp object(s), not elsewhere classified, initial encounter
CPT/HCPCS: 70450; 72125; 90471; 90715; 99284